=== PATIENT | female | born 1970 | race Caucasian/White ===

== ENCOUNTER 2017-08-09 07:31 | Day surgery (SDC) | payer MEDICAID ==
[2017-08-08 13:31] LABS: BASOPHILS % (AUTO) 0.3 % (0-1); EOSINOPHILS # (AUTO) 0.3 X10'3 (0-0.9); LYMPHOCYTES # (AUTO) 1.4 X10'3 (1.1-4.8); MEAN CORPUSCULAR HEMOGLOBIN 30.1 PG (27.0-31.0); MEAN CORPUSCULAR HGB CONC 33.4 % (33.0-36.5); MEAN CORPUSCULAR VOLUME 90.1 FL (78-98); MEAN PLATELET VOLUME 7.9 FL (7.4-10.4); MONOCYTES # (AUTO) 0.5 X10'3 (0-0.9); MONOCYTES % (AUTO) 4.8 % (2-12); NEUTROPHILS # (AUTO) 7.4 X10'3 (1.8-7.7); NEUTROPHILS % (AUTO) 76.9 % (42-75); PRE OP HEMATOCRIT 46.4 % (35.0-45.0); PRE OP HEMOGLOBIN 15.5 g/dL (12.0-16.0); PRE OP PLATELET COUNT 257 X10'3 (140-440); RED BLOOD COUNT 5.15 X10'6 (4.20-5.60); RED CELL DISTRIBUTION WIDTH 12.4 % (11.5-14.5)
[2017-08-08 13:56] LABS: ALBUMIN 4.1 G/DL (3.4-5.0); ALBUMIN/GLOBULIN RATIO 1.2 (1.1-1.5); ALKALINE PHOSPHATASE 77 IU/L (46-116); BLOOD UREA NITROGEN 9 MG/DL (7-18); BUN/CREATININE RATIO 14.1 (6.6-38.0); CALCIUM 9.3 MG/DL (8.5-10.1); CHLORIDE 105 MMOL/L (99-107); CREATININE 0.64 MG/DL (0.40-0.90); PRE OP ALT 18 U/L (30-65); PRE OP ANION GAP 8 (8-16); PRE OP AST 11 U/L (10-37); PRE OP BILIRUB, TOTAL 0.4 MG/DL (0.0-1.0); PRE OP GLUCOSE 96 MG/DL (70-104); PRE OP POTASSIUM 4.4 MMOL/L (3.4-5.1); PRE OP SODIUM 142 MMOL/L (135-145); TOTAL CARBON DIOXIDE 28.6 MMOL/L (24-32); TOTAL PROTEIN 7.5 G/DL (6.4-8.2); eGFR > 90 ML/MIN
[2017-08-09] VITALS (9 sets, daily range): BP systolic 122–138; BP diastolic 82–101
[~2017-08-09] VITALS: Ht 165.1 cm; Wt 58.9 kg
[~2017-08-09 07:31] MED LIST: TRAM50TA2 PO; VANCOMYCIN INJ 1000 MG in NORMAL SALINE 250ml IV.SOLN IV ONE; cefazolin/dext.iso 2gm/50ml 50 ML IV ONE; famotidine 20mg tablet PO ONE; ringers solution, lacted 1,000 ML IV SCH; scopolamine 1.5mg patch.TD72 TD ONE
[2017-08-09] MEDS ORDERED: LIDOcaine 1% (10mg/ml) 2ml vial ONE (08:05)
[2017-08-09] MEDS ORDERED: ringers solution, lacted 1,000 ML IV SCH (08:19)
[2017-08-09] MEDS ORDERED: ondansetron/PF 4mg/2ml inj IV PRN (08:20)
[2017-08-09] MEDS ORDERED: morphine sulfate 8 MG/ML SYRINGE IV PRN ×2 (08:20)
[2017-08-09] MEDS ORDERED: proCHLORperazine 10 MG/2 ml inj IV PRN (08:20)
[2017-08-09] MEDS ORDERED: meperidine/PF 25mg/ml syringe IV PRN ×3 (08:20)
[2017-08-09] MEDS ORDERED: triamcinolone acetonide 40mg/ml inj ONE (08:40)
[2017-08-09] MEDS ORDERED: BUPIVAcaine/PF 2.5 mg/ml (0.25%) 30ml vial ONE (08:40)
[2017-08-09] MEDS ORDERED: levoFLOXACIN-Levaquin 750MG/D5 150 ML IV ONE (08:50)
[2017-08-09] MEDS ORDERED: dexamethasone sod phosphate 4mg/ml inj. ONE (09:27)
[2017-08-09] MEDS ORDERED: sevoflurane 250ml liquid IH ONE (09:27)
[2017-08-09] MEDS ORDERED: ePHEDrine 50MG/ML INJ. ONE (09:27)
[2017-08-09] MEDS ORDERED: cloNIDine hcl/PF 100mcg/ml inj ONE (09:29)
[2017-08-09] MEDS ORDERED: ROPIVAcaine 0.5% (5mg/ml) 30ml vial ONE (09:33)
[2017-08-09] MEDS ORDERED: fentaNYL/PF 50MCG/1 ML 2ML syringe ONE (09:33)
[2017-08-09] MEDS ORDERED: midazolam 2 mg/2 ml injection ONE (09:33)
[2017-08-09] MEDS ORDERED: LIDOcaine 1%/PF (10mg/ml) 5ml vial ONE (09:44)
[2017-08-09] MEDS ORDERED: propofol inj 20 ML IV ONE (10:05)
== END 2017-08-09 12:43 | disposition home or self-care (01) ==
LOC: PAS 07:31
PROVIDERS: ATTEND Orthopaedic Surgery
DX: S43.432A Superior glenoid labrum lesion of left shoulder, initial encounter (principal); M75.42 Impingement syndrome of left shoulder; M19.012 Primary osteoarthritis, left shoulder; I10 Essential (primary) hypertension; G89.4 Chronic pain syndrome; F17.210 Nicotine dependence, cigarettes, uncomplicated; Z98.890 Other specified postprocedural states; X58.XXXA Exposure to other specified factors, initial encounter; Y93.9 Activity, unspecified; Y92.9 Unspecified place or not applicable
CPT/HCPCS: 29807; 29822; 36415; 80053; 85025; A6449; C1713; J0690; J0735; J1100; J1956; J2001; J2250; J2704; J2795; J3010; J3370; J3490; J7120; L3650; A6250; A7000; J3301